=== PATIENT | male | born 1950 | race Caucasian/White ===

== ENCOUNTER 2020-12-06 09:04 | Outpatient (CLI) | payer MEDICARE ==
[~2020-12-06] VITALS: Ht 193 cm; Wt 102.6 kg
[~2020-12-06 09:04] MED LIST: ASPI-1238 PO; ATOR40TA70 PO; BENA10TA66 PO; BISO-3 PO; OMEP20TA7 PO; TMSL.4C PO
[2020-12-06 09:15] VITALS: BP 129/80
[2020-12-06] MEDS ORDERED: OMEP40CA6 PO (09:17)
[2020-12-06] MEDS ORDERED: GEMF600T88 PO (09:17)
[2020-12-06 09:53] LABS: BASOPHILS # (AUTO) 0.1 10^3/uL (0.0-0.1); BASOPHILS % (AUTO) 1 % (0-10); EOSINOPHILS # (AUTO) 0.5 10^3/uL (0.0-0.3); EOSINOPHILS % (AUTO) 9 % (0-10); HEMATOCRIT 40 % (40-54); HEMOGLOBIN 13.6 g/dL (13.3-17.7); LYMPHOCYTES # (AUTO) 1.6 10^3/uL (1.0-4.0); LYMPHOCYTES % (AUTO) 27 % (12-44); MEAN CORPUSCULAR HEMOGLOBIN 33 pg (25-34); MEAN CORPUSCULAR HGB CONC 34 g/dL (32-36); MEAN CORPUSCULAR VOLUME 96 fL (80-99); MEAN PLATELET VOLUME 10.1 fL (9.0-12.2); MONOCYTES # (AUTO) 0.6 10^3/uL (0.0-1.0); MONOCYTES % (AUTO) 10 % (0-12); NEUTROPHILS # (AUTO) 3.2 10^3/uL (1.8-7.8); NEUTROPHILS % (AUTO) 54 % (42-75); PLATELET COUNT 195 10^3/uL (130-400)
[2020-12-06 10:06] LABS: CALCIUM 8.9 MG/DL (8.5-10.1); CREATININE SERUM 1.08 MG/DL (0.60-1.30); POTASSIUM 4.2 MMOL/L (3.6-5.0)
== END 2020-12-06 10:57 | disposition home or self-care (01) ==
LOC: PREOP 09:04
PROVIDERS: ATTEND Otolaryngology Otolaryngology/Facial Plastic Surgery
DX: Z01.810 Encounter for preprocedural cardiovascular examination (principal); H93.8X1 Other specified disorders of right ear
CPT/HCPCS: 36415; 80048; 85025; 87081

== ENCOUNTER 2020-12-15 06:01 | Day surgery (SDC) | payer MEDICARE ==
[2020-12-15] VITALS (9 sets, daily range): BP systolic 117–131; BP diastolic 70–79
[~2020-12-15] VITALS: Ht 193 cm; Wt 102.6 kg
[~2020-12-15 06:01] MED LIST changes: +GEMF600T88 PO; +OMEP40CA6 PO
[2020-12-15] MEDS ORDERED: LACTATED RINGERS 1,000 ML IV PRN (06:15)
[2020-12-15] MEDS ORDERED: ONDANSETRON 4 MG/2 ML (SDV) Z0FRAN ONE (07:02)
[2020-12-15] MEDS ORDERED: LIDOCAINE PF 2% 5 ML (XYLOCAINE) VIAL ONE (07:02)
[2020-12-15] MEDS ORDERED: SEVOFLURANE (ULTANE) 15 ML INHAL SOLN ONE ×2 (07:02→10:05)
[2020-12-15] MEDS ORDERED: proPOfol 200 MG/20 ML (DIPRIVAN) VIAL IV ONE (07:02)
[2020-12-15] MEDS ORDERED: fentaNYL INJ 100 MCG/2 ML AMP ONE (07:03)
[2020-12-15] MEDS ORDERED: MIDAZOLAM 2 MG/2 ML (VERSED) VIAL ONE (07:03)
--- NOTE | 2020-12-15 07:03 | Progress Note-Pre Operative ---
Pre-Operative Progress Note H&P Reviewed The H&P was reviewed, patient examined and no changes noted. 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
[2020-12-15] MEDS ORDERED: LIDOCAINE/EPI 1%-1:100,000 (XYLOCAINE) 20ML ONE (07:13)
[2020-12-15] MEDS ORDERED: MUPIROCIN 2% OINT 22 GM (BACTROBAN) TUBE ONE (07:23)
--- NOTE | 2020-12-15 08:12 | Progress Note-Post Operative ---
Post-Operative Progess Note Surgeon (s)/Belling Machine Operator (s) Surgeon YURY MACHUCA MD Belling Machine Operator n/a Pre-Operative Diagnosis Basal Cell cArcinoma of Right EAr Post-Operative Diagnosis same Post-Op Procedure Note Date of Procedure: Dec 15, 2020 Name of Procedure Performed: Wedge REsection Right Auricle, Reconstruction with Bialteral Advancement Flaps Description & Findings Description and Findings: n/a Anesthesia Type LMA Estimated Blood Loss minimal Packing none. Specimen(s) collected/removed Right Ear Lesion-Basal Cell YURY MACHUCA MD Dec 15, 2020 08:12
[2020-12-15] MEDS ORDERED: HYDROcodone/APAP 5 MG/325 MG (LORTAB) TAB PO PRN (08:15)
[2020-12-15] MEDS ORDERED: ACETAMINOPHEN 325 MG TABLET PO PRN ×2 (08:15)
[2020-12-15] MEDS ORDERED: PHENYLEPHRINE 100 MCG/ML 10 ML (ANESTHESIA) SYR ONE (10:02)
[2020-12-15] MEDS ORDERED: HYDROmorphone 2 MG/ML VIAL (DILAUDID) IV ONE (10:15)
[2020-12-15] MEDS ORDERED: ONDANSETRON 4 MG/2 ML (SDV) Z0FRAN IVP PRN (10:15)
[2020-12-15] MEDS ORDERED: ACHD5005 PO (11:03)
[2020-12-15] MEDS ORDERED: CEPH500T PO (11:03)
--- NOTE | 2020-12-15 13:43 | Anesthesia-General Post-Op ---
General Patient Condition Mental Status/LOC: Same as Preop Cardiovascular: Satisfactory Nausea/Vomiting: Absent Respiratory: Satisfactory Pain: Controlled Complications: Absent Post Op Complications Complications None Follow Up Care/Instructions Patient Instructions None needed. Anesthesia/Patient Condition Patient Condition Patient is doing well, no complaints, stable vital signs, no apparent adverse anesthesia problems. No complications reported per nursing. D/C home per [facility] [place] Criteria: Yes NAOMI ARMSTRONG CRNA Dec 15, 2020 13:43
== END 2020-12-15 11:45 | disposition home or self-care (01) ==
LOC: SDC 06:01
PROVIDERS: ATTEND Otolaryngology Otolaryngology/Facial Plastic Surgery
DX: C44.212 Basal cell carcinoma of skin of right ear and external auricular canal (principal); I10 Essential (primary) hypertension; K21.9 Gastro-esophageal reflux disease without esophagitis; Z79.899 Other long term (current) drug therapy
CPT/HCPCS: 88305; 88331; 88332

== ENCOUNTER → 2021-09-27 | Outpatient (CLI) | payer MEDICARE ==
[~2021-09-27] MED LIST changes: +ACHD5005 PO; +CEPH500T PO; +OMEP20TA56 PO; -OMEP20TA7 PO
== END ==
LOC: CARD 12:30
PROVIDERS: ATTEND Student in an Organized Health Care Education/Training Program
DX: I48.91 Unspecified atrial fibrillation (principal)
CPT/HCPCS: 93005

== ENCOUNTER → 2022-09-10 | Outpatient (CLI) | payer MEDICARE ==
--- NOTE | 2022-09-10 16:02 | Diagnostic Imaging Report ---
INDICATION: Neck pain. TECHNIQUE: AP, odontoid, and lateral views of the cervical spine were obtained. FINDINGS: The cervical vertebrae are normal in height. There is about 4 mm of anterolisthesis of C5 on C6. There is diffuse facet degenerative change. There is diffuse osteophyte formation of the vertebral bodies from C4 through C6. The odontoid is intact. IMPRESSION: Diffuse facet degenerative change and diffuse osteophyte formation at the disc space levels. The disc spaces are not appreciated narrow. There is about 4 mm of anterolisthesis of C5 on C6, consider MRI if clinically warranted. Dictated by: Dictated on workstation # [id number]
== END ==
LOC: RAD 09:52
PROVIDERS: ATTEND Nurse Practitioner Family
DX: M47.812 Spondylosis without myelopathy or radiculopathy, cervical region (principal); M25.78 Osteophyte, vertebrae; M43.12 Spondylolisthesis, cervical region
CPT/HCPCS: 72040